=== PATIENT | female | born 1980 | race Two or more races ===

== ENCOUNTER 2024-12-09 20:18 | Emergency (ER) | payer MEDICAID, SELFPAY ==
[2024-12-09 20:34] VITALS: BP 114/75; PULSE 108; RESP 18; TEMP 38.8; O2SAT 95; BMI 26.0
--- NOTE | 2024-12-09 20:44 | EDNOTE_ITS ---
ED Fever RME/HPI General Chief Complaint: Fever Stated Complaint: FEVER Time Seen by Provider: 12/09/24 20:40 Arrival date/time: 12/09/24 20:18 RME / HPI RME / HPI Narrative: This section includes all my notes and documentations, including HPI, PE, and ED course. Gerardo Her MD HPI: 44 y/o female here with 1 week history of worsening cough, productive cough, purulent sputum, and dyspnea. With fever and chills and bodyaches and sore throat and headache. She also reports dysuria and urinary frequency in the past couple days. No other complaints. ROS: All negative except as documented in HPI. Physical Exam: General: Alert and oriented. Hacking cough noted. Fever noted. Eyes: Conjunctivae and lids clear. ENT: No nasal congestion. Neck: Supple. Heart: RRR. Lungs: No respiratory distress. Moderately decreased air movement with diffuse rhonchi. Abdomen: Soft and nontender. Skin: Warm and dry. Neuro: Alert and oriented X 3. I reviewed all diagnostic test results: My interpretation of the chest x-ray is infiltrates. Blood tests and urine tests unremarkable. Covid negative. Influenza positive. At this point, diagnoses include: Influenza, Pneumonia. Treatment here included: IVF, Rocephin 1 G, Toradol 30 mg, Zofran 4 mg, two Tylenol #3, Tamiflu 75 mg, Ativan 0.5 mg IV, and Zithromax 500 mg. Significant improvement noted. Recommended outpatient care. Based on my best medical judgment, made decision no further evaluation or treatment indicated at this time. Patient understands and agrees to the discharge instructions customized and printed, see below. Discharge instructions from Dr. Her: --You have Pneumonia and Influenza. --No physical exertion for 3 days to help rest the lungs. ?No smoking or exposure to smoking or pets or dust or cold or humidity. --Zithromax and Cefdinir to kill the germs causing the Pneumonia. --Tamiflu for Influenza. --Prednisone to help decrease the swelling in the airways. --Albuterol 2 puffs as needed for cough or shortness of breath. --Ibuprofen 600 mg every 6-8 hours today and tomorrow to decrease inflammation then as needed. --Tylenol with codeine for severe cough for severe pain. --Your body needs extra fluid when you are sick. Increase oral fluid and maintain clear urine. If dark or yellow, increase oral fluid. --See a private doctor on 12/12/2024 for recheck. Ask for help until you are completely better. --Seek immediate medical care with worsening or with any concerns. Gerardo Her MD Related Data Previous Rx's ?Medication ?Instructions ?Recorded acetaminophen 650 mg 650 mg PO Q12H #20 tabs 1212/24 tablet,extended release doxycycline monohydrate 100 mg 100 mg PO BID #14 caps 05/30/23 capsule metronidazole 500 mg tablet 500 mg PO Q12H #14 tabs acetaminophen 300 mg-codeine 30 mg 2 tab PO Q8H PRN pa in #20 tabs 12/09/24 tablet albuterol sulfate 90 mcg/actuation 2 puff inhalation Q 6H PRN 12/09/24 aerosol inhaler shortness of breath or wheez ing #8.5 grams azithromycin 500 mg tablet 500 mg PO QDAY 3 days #3 ta bs 12/09/24 (Zithromax TRI-ALEXIS) cefdinir 300 mg capsule 300 mg PO BID #14 caps 12/09 prednisone 20 mg tablet 20 mg PO BID 3 days #6 tabs 12/09/24 Allergies Allergy/AdvReac Type Severity Reaction Status Date / Time No Known Allergies Allergy Verified 12/09/24 20:27 Review of Systems Review of Systems Systems Reviewed: All systems reviewed, normal except as documented Past Medical History Past Medical History REPRODUCTIVE: Positive Previous Pregnancies OTHER HISTORY: Positive Chicken Pox Surgical History SURGICAL: Positive Tubal Ligation Physical Exam Narrative Physical exam: Refer to HPI ED Exam Narrative Physical exam: Refer to HPI Course Quality Measures none Orders Category Date Time Status Bedside COVID-19 Antigen Test NOW Care 12/09/24 20:46 Completed Bedside Influenza A&B Antigen Test NOW Care 12/09/24 20:46 Completed Saline [Insert IV] NOW Care 12/09/24 20:53 Completed XR chest 1V portable Stat Exams 12/09/24 20:56 Completed Amylase Stat Lab 12/09/24 21:18 Completed Bilirubin,Direct Stat Lab 12/09/24 21:18 Completed Blood Culture (Lab) Stat Lab 12/09/24 21:18 Received CBC Stat Lab 12/09/24 21:18 Completed CMP [Comprehensive Metabolic Panel] Stat Lab 12/09/24 21:18 Completed CRP [C-Reactive Protein] Stat Lab 12/09/24 21:18 Completed ESR [Sed Rate (ESR)] Stat Lab 12/09/24 21:18 Completed HCG Qualitative,Urine Stat Lab 12/09/24 20:41 Completed Lactate (Lactic Acid) Stat Lab 12/09/24 21:03 Completed Lipase Stat Lab 12/09/24 21:18 Completed Magnesium Stat Lab 12/09/24 21:18 Completed Procalcitonin Stat Lab 12/09/24 21:18 Completed UA, C/S IF [Urinalysis, C/S if Indicated] Stat Lab 12/09/24 20:41 Completed ACETAMINOPHEN w/COD 300-30 [Tylenol w/Cod #3] Med 12/09/24 20:55 Discontinued 2 tab PO X1 ONE Azithromycin Po [Zithromax PO] Med 12/09/24 22:36 Discontinued 500 mg PO X1 ONE Ketorolac Inj [Toradol Inj] Med 12/09/24 20:55 Discontinued 30 mg IVP X1 ONE LORazepam [Ativan Inj] Med 12/09/24 23:10 Discontinued 0.5 mg IVP X1 ONE Ondansetron Inj [Zofran Inj] Med 12/09/24 20:55 Discontinued 4 mg IVP X1 ONE Oseltamivir [Tamiflu] Med 12/09/24 21:15 Discontinued 75 mg PO X1 ONE Sodium Chloride 0.9% 1000 ml [Ns] 1,000 ml Med 12/09/24 20:55 Discontinued IV 999 mls/hr cefTRIAXone/D5w 1gm IV premix [Rocephin/D5w 1gm IV Med 12/09/24 20:55 Discontinued premix] 1 gm in 50 ml IV X1 Vital Signs Vital signs: Vital Signs Temperature 101.8 F H 12/09/24 20:34 Pulse Rate 108 H 12/09/24 20:34 Respiratory Rate 18 12/09/24 20:34 Blood Pressure 114/75 12/09/24 20:34 Pulse Oximetry (%) 95 12/09/24 20:34 Oxygen Delivery Method Room Air 12/09/24 20:34 Fever MDM Narrative MDM Narrative:: Scribe Attestation: Mary Little, am scribing for and in the presence of Dr. Hre. Provider Notation: Although this document has been carefully reviewed, there may still be some phonetic and other typographical errors.? These errors are purely grammatical due to imperfections in the software program and should not be construed in any way to? compromise the substance of the patient's medical care during this visit. 44 y/o female presents with fever, cough with chest pain, headache, 1 episode of vomiting, and sore throat x 5 days. Patient also reports dysuria, frequent urination, and right flank pain. No other complaints. Patient data External records reviewed:: [facility] previous records (Reviewed prior ED record from 06/01/22. Patient was seen for Closed head injury.) Clinical information provided by:: patient Social determinants that could affect healthcare access:: none Patient has the following chronic illnesses:: None reported. How is presenting disease/condition affected by chronic disease/condition?: no chronic disease Evaluation data The following diagnostics were reviewed and interpreted by me:: lab results and radiology exam(s) Lab and/or radiology exams considered but not ordered:: None Interpretation Summary: I reviewed all diagnostic test results: My interpretation of the chest x-ray is infiltrates. Blood tests and urine tests unremarkable. Covid negative. Influenza positive. Medications / Prescriptions Medications or Prescriptions considered but not ordered:: None Medication administrations:: Medication Administration History Discontinued Medications Acetaminophen/Codeine Phosphate (Acetaminophen W/Cod 300-30 Tablet) 2 tab PO X1 ONE Stop: 12/09/24 20:56 Last Admin: 12/09/24 21:56 Dose: 2 tab Documented By: DAMASO Azithromycin (Azithromycin 250 Mg Tablet) 500 mg PO X1 ONE Stop: 12/09/24 22:37 Last Admin: 12/10/24 00:59 Dose: 500 mg Documented By: DAMASO Sodium Chloride (Ns) 1,000 mls @ 999 mls/hr IV .Q1H1M ONE Stop: 12/09/24 21:55 Last Infusion: 12/09/24 23:05 Dose: Infused Documented By: Admin: 12/09/24 22:04 Dose: 999 mls/hr Documented By: DAMASO Ceftriaxone Sodium/Dextrose (Rocephin/D5w 1gm Iv Premix) 1 gm in 50 mls @ 100 mls/hr IV X1 ONE Stop: 12/09/24 21:24 Last Infusion: 12/09/24 22:29 Dose: Infused Documented By: Admin: 12/09/24 21:59 Dose: 100 mls/hr Documented By: CG Ketorolac Tromethamine (Ketorolac Inj 30 Mg/Ml Vial) 30 mg IVP X1 ONE Stop: 12/09/24 20:56 Last Admin: 12/09/24 21:56 Dose: 30 mg Documented By: CG Lorazepam (Lorazepam 2 Mg/Ml Vial) 0.5 mg IVP X1 ONE Stop: 12/09/24 23:11 Last Admin: 12/10/24 00:04 Dose: 0.5 mg Documented By: BC Ondansetron HCl (Ondansetron Inj 2 Mg/Ml Inj 2 Ml) 4 mg IVP X1 ONE; Protocol Stop: 12/09/24 20:56 Last Admin: 12/09/24 21:58 Dose: 4 mg Documented By: CG Oseltamivir Phosphate (Oseltamivir 75 Mg Capsule) 75 mg PO X1 ONE Stop: 12/09/24 21:16 Last Admin: 12/09/24 21:57 Dose: 75 mg Documented By: CG Treatment here included: IVF, Rocephin 1 G, Toradol 30 mg, Zofran 4 mg, two Tylenol #3, Tamiflu 75 mg, Ativan 0.5 mg IV, and Zithromax 500 mg. Consultations Consultation(s) initiated? (list below): No Diagnosis Fever Differential Diagnosis: cellulitis, fever of unknown origin, gastroenteritis, community acquired pneumonia, pyelonephritis, viral infection, sepsis and influenza Most likely diagnosis given after review of the tests above:: Influenza, Pneumonia Admission Indicated Admission indicated?: not indicated Explain why admission is indicated or not indicated:: With significant improvement and no condition needing emergent intervention, there was no indication for admission. Admission Request Was there a request for admission?: No Disposition Plan Disposition Plan: Discharge Discharge Attestation Discharge Attestation: The patient and all family members were given an opportunity to ask questions and understood the discharge instructions. Discharge instructions specifically effects, indications for sooner follow up or return to the emergency department, and the expected course of current diagnosis. Patient condition: Stable Discharge Plan Plan Patient Disposition: HOME (Self Care) Prescriptions/Referrals Prescriptions/Med Rec: New prednisone 20 mg tablet 20 mg PO BID 3 Days Qty: 6 0RF Taper: Prednisone Taper 20 mg DAILY for 2 Days and 0 Hour 10 mg DAILY for 2 Days and 0 Hour 5 mg DAILY for 7 Days and 0 Hour acetaminophen-codeine 300-30 mg tablet 2 tab PO Q8H MDD 6 PRN (Reason: pain) Qty: 20 0RF albuterol sulfate 90 mcg/actuation HFA aerosol inhaler 2 puff inhalation Q6H PRN (Reason: shortness of breath or wheezing) Qty: 8.5 0RF cefdinir 300 mg capsule 300 mg PO BID Qty: 14 0RF azithromycin [Zithromax TRI-ALEXIS] 500 mg tablet 500 mg PO QDAY 3 Days Qty: 3 0RF No Action metronidazole 500 mg tablet 500 mg PO Q12H Qty: 14 0RF doxycycline monohydrate 100 mg capsule 100 mg PO BID Qty: 14 0RF acetaminophen 650 mg tablet extended release 650 mg PO Q12H Qty: 20 0RF Referrals: Bry Krishna MD [Primary Care Provider] - In 1 week Problem List Clinical Impression: Influenza, Pneumonia Patient/Caregiver Discharge Instructions Discharge Activity: activity as tolerated Education Materials: ED Influenza (Adult), ED Pneumonia (Adult) Additional Instructions: Discharge instructions from Dr. Her: --You have Pneumonia and Influenza. --No physical exertion for 3 days to help rest the lungs. ?No smoking or exposure to smoking or pets or dust or cold or humidity. --Zithromax and Cefdinir to kill the germs causing the Pneumonia. --Tamiflu for Influenza. --Prednisone to help decrease the swelling in the airways. --Albuterol 2 puffs as needed for cough or shortness of breath. --Ibuprofen 600 mg every 6-8 hours today and tomorrow to decrease inflammation then as needed. --Tylenol with codeine for severe cough for severe pain. --Your body needs extra fluid when you are sick. Increase oral fluid and maintain clear urine. If dark or yellow, increase oral fluid. --See a private doctor on 12/12/2024 for recheck. Ask for help until you are completely better. --Seek immediate medical care with worsening or with any concerns. Instrucciones de michael del Dr. Her: --Tiene neumon?a e influenza. --No realice esfuerzo f?sico charlee 3 d?as para ayudar a los pulmones a descansar. --No fume ni se exponga al humo, a mascotas, al polvo, al fr?o ni a la humedad. --Zithromax y Cefdinir para eliminar los g?rmenes que causan la neumon?a. --Tamiflu para la influenza. --Prednisona para ayudar a disminuir la inflamaci?n de las v?as respiratorias. --Albuterol: 2 inhalaciones seg?n sea necesario para la tos o la dificultad para respirar. --Ibuprofeno 600 mg cada 6-8 horas hoy y ma?ruthy para disminuir la inflamaci?n, y luego, seg?n sea necesario. --Tylenol con code?na para la tos intensa o el dolor intenso. --Shirley cuerpo necesita m?s l?quidos cuando est? enfermo. Aumente la ingesta de l?quidos por v?a oral y mantenga la orina bj. Si la orina es oscura o amarilla, aumente la ingesta de l?quidos por v?a oral. --Consulte con un m?dico particular el 04/10/2025 para dario nueva revisi?n. Solicite ayuda hasta que se recupere por completo. --Busque atenci?n m?dica inmediata si presenta empeoramiento o cualquier inquietud. Print Language: Liberian Stand Alone Forms: [facility] Info., Patient Portal Info Letter
--- NOTE | 2024-12-09 20:56 | XR_ITS ---
Examination: AP chest single view Technique one AP portable semiupright chest single view Date and time: December 09, 2024, 10 0 9:00 PM INDICATION: Fever and coughing for 5 days. FINDINGS: Left perihilar left upper lobe pneumonia Normal heart size The osseous structures are intact IMPRESSION: Left perihilar left upper lobe pneumonia
[2024-12-09 20:58] LABS: Collection Type, Urine Clean Catch
[2024-12-09 21:07] LABS: Bilirubin,Urine Negative (Negative); Blood,Urine 3+ (Negative); Clarity,Urine Clear (Clear/Hazy); Color,Urine Yellow (Lt Yel-Yel); Culture Indicated,Urine Not Indicated; Glucose, Urine Negative (Negative); HCG Qualitative,Urine Negative; Ketones,Urine Negative (Negative); Leukocyte Esterase,Urine Negative (Negative); Nitrite,Urine Negative (Negative); PH,Urine 6.0 (5.0-7.0); Protein,Urine 1+ (Neg - Trace); RBC,Urine 39 /hpf (0-3); Specific Gravity,Urine 1.036 (1.001-1.035); Squamous Epithelial Cell,Urine 6 /hpf (0-5); Urobilinogen,Urine 3.0 mg/dL (0.0-1.0); WBC,Urine 1 /hpf (0-5)
[2024-12-09 21:12] VITALS: BP 122/67; PULSE 110; RESP 20; TEMP 38.2; O2SAT 97
[2024-12-09 21:29] LABS: Lactate (Lactic Acid) 1.0 mMol/L (0.4-2.0)
[2024-12-09 21:31] LABS: Basophils # (Auto) 0.0 Thou/mm3 (0.0-0.2); Basophils % (Auto) 1 % (0-2.5); Eosinophils # (Auto) 0.1 Thou/mm3 (0.0-0.5); Eosinophils % (Auto) 1 % (0-10); Hematocrit 31.6 % (36.0-46.0); Hemoglobin 11.2 g/dL (12.0-16.0); Immature Granulocytes Auto 0.03 Thou/mm3 (0.00-0.00); Lymphocytes # (Auto) 1.4 Thou/mm3 (1.0-4.8); Lymphocytes % (Auto) 18 % (10-50); Mean Corpuscular HGB Conc 35.4 g/dl (31.0-37.0); Mean Corpuscular Hemoglobin 28.5 pg (25.0-35.0); Mean Corpuscular Volume 80 fL (80-100); Monocytes # (Auto) 0.6 Thou/mm3 (0.0-0.8); Monocytes % (Auto) 7 % (0-12); Neutrophils # (Auto) 5.7 Thou/mm3 (1.8-7.7); Neutrophils % (Auto) 73 % (37-80); Nucleated Red Blood Cell # 0.00 Thou/mm3 (0.00-0.00); Nucleated Red Blood Cell % 0 /100 WBC (0); Platelet Count 238 Thou/mm3 (140-440); RDW Standard Deviation 37.4 fL (36.4-46.3); Red Blood Count 3.93 Miln/mm3 (4.00-5.20); White Blood Count 7.8 Thou/mm3 (3.6-11.0)
[2024-12-09 21:49] LABS: Sed Rate (ESR) 54 mm/hr (0-20)
[2024-12-09 21:56] VITALS: TEMP 38
[2024-12-09] MEDS: ACETAMINOPHEN w/COD 300-30 TABLET 2 TAB PO (21:56)
[2024-12-09] MEDS: KETOROLAC INJ 30 MG/ML VIAL IVP (21:56)
[2024-12-09] MEDS: OSELTAMIVIR 75 MG CAPSULE PO (21:57)
[2024-12-09] MEDS: ONDANSETRON INJ 2 MG/ML INJ 2 ML 4 MG IVP (21:58)
[2024-12-09] MEDS: cefTRIAXone/D5w 1gm IV premix 1 GM/50 ML BAG IV (21:59)
[2024-12-09 22:02] LABS: Alanine Aminotransferase 63 U/L (10-49); Albumin, Serum 4.3 gm/dL (3.5-5.0); Albumin/Globulin Ratio 1.3 (1.2-2.2); Alkaline Phosphatase 84 U/L (46-116); Amylase 42 U/L (30-118); Anion Gap 11 (7-16); Aspartate Amino Transferase 55 U/L (0-34); BUN/Creatinine Ratio 18 Ratio (12-20); Bilirubin,Direct 0.1 mg/dL (0.0-0.3); Bilirubin,Total 0.5 mg/dL (0.3-1.2); Blood Urea Nitrogen 11 mg/dL (9-23); C-Reactive Protein > 10.0 mg/dL (0.0-0.9); Calcium 8.6 mg/dL (8.3-10.6); Calcium (Corrected) 8.6 mg/dL (8.5-10.1); Carbon Dioxide 25.7 mMol/L (20.0-31.0); Chloride 103 mMol/L (98-107); Creatinine (Component) 0.6 mg/dL (0.6-1.3); Estimated Creatinine Clearance 107.8 mL/min (>60); Globulin 3.2 gm/dL (2.3-3.5); Glucose 104 mg/dL (74-106); Lipase 32 U/L (12-53); Magnesium 1.9 mg/dL (1.6-2.6); Osmolality,Calculated 278 (275-295); Potassium 3.7 mMol/L (3.4-5.1); Procalcitonin 0.06 ng/ml (0.0-0.49); Sodium 140 mMol/L (136-145); Total Protein 7.5 gm/dL (5.7-8.2); eGFR > 60 See Note
[2024-12-09] MEDS: SODIUM CHLORIDE 0.9% 1000 ML 1,000 ML 999 ML IV (22:04)
[2024-12-10] MEDS: LORazepam 2 MG/ML VIAL 0.5 MG IVP (00:04)
[2024-12-10] MEDS: AZITHROMYCIN 250 MG TABLET 500 MG PO (00:59)
[2024-12-10 01:01] VITALS: BP 95/60; PULSE 99; RESP 23; TEMP 36.7; O2SAT 95
== END 2024-12-10 02:16 | disposition home or self-care (01) ==
PROVIDERS: Emergency Provider Emergency Medicine; PCP Family Medicine
DX: J11.00 Influenza due to unidentified influenza virus with unspecified type of pneumonia (principal)
CPT/HCPCS: 36415; 71045; 80053; 81001; 81025; 82150; 82248; 83605; 83690; 83735; 84145; 85025; 85652; 86140; 87040; 87400; 87634; 87651; 87811; 96361; 96365; 96372; 96375; 99283; 99284; J0696; J1885; J2060; J2405; J7030; A9270

== ENCOUNTER 2025-05-26 13:30 | Emergency (ER) | payer MEDICAID, SELFPAY ==
[2025-05-26 13:42] VITALS: BP 126/84; PULSE 73; RESP 18; TEMP 36.5; O2SAT 99; BMI 29.2
--- NOTE | 2025-05-26 13:47 | XR_ITS ---
Examination: Pelvic ultrasound, transabdominal, complete Technique: Transabdominal ultrasound of the pelvis performed using grayscale imaging Date and time of exam: May 26, 2025, 1611 hours INDICATIONS: Pelvic pain today FINDINGS: Uterus 8.1 cm no uterine mass or intrauterine gestation endometrial site 0.3 cm Right ovary 3.7 cm arterial flow 23 x 21 x 21 mm simple cyst Left ovary 2.2 cm arterial flow IMPRESSION: Right ovarian simple cyst 23 x 21 x 21 mm
--- NOTE | 2025-05-26 13:48 | PD.EDRME ---
Rapid Medical Screening Exam E Arrival date/time: 05/26/25 13:30 44-year-old female with surgical history significant for tubal ligation presents to the Emergency Department for complaints of vaginal bleeding patient for she started her period today. Patient reports pelvic cramping. Chief Complaint: Vaginal Bleeding Time Seen by Provider: 05/26/25 13:47 Vital signs: Vital Signs Temperature 97.7 F 05/26/25 13:42 Pulse Rate 73 05/26/25 13:42 Respiratory Rate 18 05/26/25 13:42 Blood Pressure 126/84 05/26/25 13:42 Pulse Oximetry (%) 99 05/26/25 13:42 Oxygen Delivery Method Room Air 05/26/25 13:42 Vital signs reviewed by provider: Yes Exam: On exam patient well-appearing does not appear ill or toxic no acute distress Patient hemodynamically stable Clinical Impression: Lab work and imaging obtained
[2025-05-26] MEDS: HYDROcodone/APAP 5/325 TABLET 1 TAB PO (13:51)
[2025-05-26 14:33] LABS: Basophils # (Auto) 0.1 Thou/mm3 (0.0-0.2); Basophils % (Auto) 0 % (0-2.5); Eosinophils # (Auto) 0.2 Thou/mm3 (0.0-0.5); Eosinophils % (Auto) 1 % (0-10); Hematocrit 34.0 % (36.0-46.0); Hemoglobin 11.5 g/dL (12.0-16.0); Immature Granulocytes Auto 0.03 Thou/mm3 (0.00-0.00); Lymphocytes # (Auto) 1.4 Thou/mm3 (1.0-4.8); Lymphocytes % (Auto) 11 % (10-50); Mean Corpuscular HGB Conc 33.8 g/dl (31.0-37.0); Mean Corpuscular Hemoglobin 28.3 pg (25.0-35.0); Mean Corpuscular Volume 84 fL (80-100); Monocytes # (Auto) 0.5 Thou/mm3 (0.0-0.8); Monocytes % (Auto) 4 % (0-12); Neutrophils # (Auto) 11.0 Thou/mm3 (1.8-7.7); Neutrophils % (Auto) 83 % (37-80); Nucleated Red Blood Cell # 0.00 Thou/mm3 (0.00-0.00); Nucleated Red Blood Cell % 0 /100 WBC (0); Platelet Count 306 Thou/mm3 (140-440); RDW Standard Deviation 41.2 fL (36.4-46.3); Red Blood Count 4.06 Miln/mm3 (4.00-5.20); White Blood Count 13.2 Thou/mm3 (3.6-11.0)
[2025-05-26 14:48] LABS: HCG,Qualitative Serum Negative
[2025-05-26 14:50] LABS: INR 1.0 (0.9-1.3); Partial Thromboplastin Time 28.1 Seconds (22.0-36.0); Prothrombin Time 10.3 Seconds (9.0-12.2)
[2025-05-26 14:51] LABS: Alanine Aminotransferase 13 U/L (10-49); Albumin, Serum 4.6 gm/dL (3.5-5.0); Albumin/Globulin Ratio 1.5 (1.2-2.2); Alkaline Phosphatase 66 U/L (46-116); Anion Gap 9 (7-16); Aspartate Amino Transferase 19 U/L (0-34); BUN/Creatinine Ratio 18 Ratio (12-20); Bilirubin,Total 0.4 mg/dL (0.3-1.2); Blood Urea Nitrogen 11 mg/dL (9-23); Calcium 9.0 mg/dL (8.3-10.6); Calcium (Corrected) 9.0 mg/dL (8.5-10.1); Carbon Dioxide 27.1 mMol/L (20.0-31.0); Chloride 105 mMol/L (98-107); Creatinine (Component) 0.6 mg/dL (0.6-1.3); Estimated Creatinine Clearance 109.5 mL/min (>60); Globulin 3.0 gm/dL (2.3-3.5); Glucose 93 mg/dL (74-106); Osmolality,Calculated 280 (275-295); Potassium 3.6 mMol/L (3.4-5.1); Sodium 141 mMol/L (136-145); Total Protein 7.6 gm/dL (5.7-8.2); eGFR > 60 See Note
--- NOTE | 2025-05-26 15:21 | EDNOTE_ITS ---
ED General RME/HPI General Chief complaint: Vaginal Bleeding Stated complaint: ON MENSES, SEVERE CRAMPING, MODERATE AMT OF BLEED. Time Seen by Provider: 05/26/25 13:47 Arrival date/time: 05/26/25 13:30 CC: Low center abdominal cramping with pain HPI started her menses yesterday, and the pain is worse than usual. Patient does not take any medication for her menstrual cramps. Patient denies fever chills chest pain shortness of breath or difficulty breathing. No other complaints RME / HPI RME / HPI narrative: 05/26/25 13:30 44-year-old female with surgical history significant for tubal ligation presents to the Emergency Department for complaints of vaginal bleeding patient for she started her period today. Patient reports pelvic cramping. Exam: On exam patient well-appearing does not appear ill or toxic no acute distress Patient hemodynamically stable Impression: Lab work and imaging obtained Related Data Previous Rx's ?Medication ?Instructions ?Recorded acetaminophen 650 mg 650 mg PO Q12H #20 tabs 05/05 12/24 tablet,extended release doxycycline monohydrate 100 mg 100 mg PO BID #14 caps 05/30/23 capsule metronidazole 500 mg tablet 500 mg PO Q12H #14 tabs acetaminophen 300 mg-codeine 30 mg 2 tab PO Q8H PRN pa in #20 tabs 12/09/24 tablet albuterol sulfate 90 mcg/actuation 2 puff inhalation Q 6H PRN 12/09/24 aerosol inhaler shortness of breath or wheez ing #8.5 grams cefdinir 300 mg capsule 300 mg PO BID #14 caps 12/09 ibuprofen 600 mg tablet 600 mg PO Q8H PRN pain #14 t abs 05/26/25 Allergies Allergy/AdvReac Type Severity Reaction Status Date / Time No Known Allergies Allergy Verified 05/26/25 13:35 Review of Systems Review of Systems Narrative Review of Systems: GEN: No fever, no chills, no weight loss EYES: No discharge, no visual changes, no pain HEENT: No ear pain, no congestion, no sore throat PULM: No shortness of breath, no cough, no congestion CV: No chest pain, no dyspnea on exertion, no palpitations GI: No nausea, no vomiting, no diarrhea, no pain, no constipation : No frequency, no urgency, no dysuria MUSC/SKEL: No joint pain, no back pain SKIN: No rash PSYCH: No hallucinations, no depression HEME/LYMPH: No easy bleeding or bruising tendencies NEURO: No weakness, no headache Past Medical History Past Medical History NEUROLOGIC: Negative Neurological Disorders or Seizures CARDIAC: Negative Cardiac Disorders or Congestive Heart Failure RESPIRATORY: Negative Chronic Obstructive Pulmonary Disease (COPD) GASTROINTESTINAL: Negative Gastrointestinal Disorders GENITOURINARY: Negative Genitourinary Disorders or Renal Disease REPRODUCTIVE: Positive Previous Pregnancies MUSCULOSKELETAL: Negative Musculoskeletal Disorders ENDOCRINE: Negative Endocrine Disorders, Diabetes Mellitus Type 1 or Diabetes Mellitus Type 2 HEMATOLOGIC: Negative Blood Disorders OTHER HISTORY: Positive Chicken Pox; Negative Hospitalization, Autoimmune Disease, Shingles, Blood Transfusions, Blood Transfusion Reaction, Anesthesia Reactions or Cancer Family History FAMILY HISTORY: Negative Family Psychiatric Problems, Family Respiratory Disorders, Family Cardiac Disorders, Family Gastrointestinal Problems, Family Cancer, Family Surgery or Family Anesthesia Reaction Surgical History SURGICAL: Positive Tubal Ligation Social History SMOKING STATUS: Never smoker ED Exam Narrative Physical exam: [General: Not in any acute distress Head normocephalic HEENT: Within acceptable limits Neck is supple nontender Chest equal chest rise nontender to palpation Respiratory: Clear to auscultation no wheezes crackles or rubs CV: Rate rhythm is regular no murmurs rubs or clicks Abdomen is distended secondary to body habitus soft nontender no masses positive bowel sounds all 4 quadrants Back: No CVA tenderness no spinous process tenderness from cervical spine thoracic and lumbar spine Skin: Intact no petechiae rash induration ulceration or crepitus Extremities: Moving all extremity against resistance cap refill less than 2 seconds neurosensory intact Neuro: Awake alert oriented x3 Glascow coma 15 no focal deficits] Course Quality Measures none Orders Category Date Time Status US pelvic complete Stat Exams 05/26/25 13:47 Completed CBC Stat Lab 05/26/25 14:08 Completed Comprehensive Metabolic Panel Stat Lab 05/26/25 14:08 Completed HCG,Qualitative Serum Stat Lab 05/26/25 14:08 Completed Partial Thromboplastin Time Stat Lab 05/26/25 14:08 Completed Prothrombin Time with INR Stat Lab 05/26/25 14:08 Completed HYDROcodone*/APAP 5/325 [Mchenry 5/325] Med 05/26/25 13:47 Discontinued 1 tab PO X1 ONE Vital Signs Vital signs: Vital Signs Temperature 97.7 F 05/26/25 13:42 Pulse Rate 73 05/26/25 13:42 Respiratory Rate 18 05/26/25 13:42 Blood Pressure 126/84 05/26/25 13:42 Pulse Oximetry (%) 99 05/26/25 13:42 Oxygen Delivery Method Room Air 05/26/25 13:42 Discharge Plan Plan Patient Disposition: HOME (Self Care) Patient condition on transfer: Stable Prescriptions/Referrals Prescriptions/Med Rec: New ibuprofen 600 mg tablet 600 mg PO Q8H PRN (Reason: pain) Qty: 14 0RF No Action acetaminophen-codeine 300-30 mg tablet 2 tab PO Q8H MDD 6 PRN (Reason: pain) Qty: 20 0RF albuterol sulfate 90 mcg/actuation HFA aerosol inhaler 2 puff inhalation Q6H PRN (Reason: shortness of breath or wheezing) Qty: 8.5 0RF cefdinir 300 mg capsule 300 mg PO BID Qty: 14 0RF metronidazole 500 mg tablet 500 mg PO Q12H Qty: 14 0RF doxycycline monohydrate 100 mg capsule 100 mg PO BID Qty: 14 0RF acetaminophen 650 mg tablet extended release 650 mg PO Q12H Qty: 20 0RF Referrals: Bry Krishna MD [Physician, Family Practice] - In 1 week Problem List Clinical Impression: Ovarian cyst, Abdominal cramping Patient/Caregiver Discharge Instructions Other Activity Instructions:: Take the medication as needed for temporary pain relief follow-up with your NUCLEAR CHEMISTRY TECHNICIAN if there is worsening of symptoms return to the emergency room for reevaluation otherwise follow-up with your primary care doctor. Education Materials: ED Ovarian Cyst Print Language: Greek Stand Alone Forms: [employer] Info., Patient Portal Info Letter, Work/School Release PA/MANUAL EQUIPMENT MECHANIC Supervising Physician PA/MANUAL EQUIPMENT MECHANIC Supervising Physician: Leighton Abraham ENP [facility] Clinical Information Provided by: patient Medical Records reviewed [facility] Meds/Rx considered, not ordered None Labs/Rad/Tests considered, not ordered None Chronic Illness/Social Conditions which may negatively complicate care or outcome(s)-explain: None or not applicable EKG EKG not done Labs Labs: interpreted by la Lab(s) Interpretation(s): CBC shows mild leukocytosis of 13.2 no anemia thrombocytopenia CMP shows no significant electrolyte imbalances renal impairment transaminitis or T. bili elevation Coags within acceptable limits hCG is negative Urine is negative for UTI Imaging Imaging interpretation: interpreted by me Imaging Interpretation(s): Pelvic ultrasound is positive for right ovarian cyst. Medication Administration(s) Medication Administration History Discontinued Medications Hydrocodone Bitart/Acetaminophen (Hydrocodone/Apap 5/325 Tablet) 1 tab PO X1 ONE Stop: 05/26/25 13:48 Last Admin: 05/26/25 13:51 Dose: 1 tab Documented By: OA
== END 2025-05-26 16:31 | disposition home or self-care (01) ==
LOC: SERX 16:30
PROVIDERS: Nurse Practitioner Primary Care; Emergency Provider Family Medicine
DX: N83.291 Other ovarian cyst, right side (principal); Z98.51 Tubal ligation status
CPT/HCPCS: 36415; 76856; 80053; 84703; 85025; 85610; 85730; 99283; A9270